=== PATIENT | male | born 1950 | race Caucasian/White ===

== ENCOUNTER 2022-06-30 07:06 | Emergency (ER) | payer OTHER, MEDICARE ==
[2022-06-30 08:01] LABS: CHLORIDE,CL 106 mEq/L (98-106); PTT,PARTIAL THROMBOPLSTIN TIME 30.8 SEC (23.2-32.3); SODIUM,NA 140 mEq/L (136-145)
[2022-06-30 08:11] LABS: ESTIMATED GFR 39 mL/min (>=60)
== END 2022-06-30 10:09 ==
LOC: CC.ED 07:06
DX: I20.9 Angina pectoris, unspecified (principal); F41.9 Anxiety disorder, unspecified; Z88.1 Allergy status to other antibiotic agents; Z88.8 Allergy status to other drugs, medicaments and biological substances; Z91.018 Allergy to other foods; Z79.82 Long term (current) use of aspirin; Z79.899 Other long term (current) drug therapy; Z79.01 Long term (current) use of anticoagulants; Z20.822 Contact with and (suspected) exposure to COVID-19
CPT/HCPCS: 36415; 71046; 80053; 82550; 83615; 83690; 83735; 84484; 85025; 85610; 85730; 93010; 99284; 99285; U0002